=== PATIENT | female | born 1985 | race Caucasian/White ===

== ENCOUNTER 2020-03-13 08:10 | Outpatient (CLI) | payer BC ==
--- NOTE | 2020-03-13 08:29 | RAD ---
RADIOGRAPH CHEST 2 VIEWS: DATE: 03/13/2020 HISTORY: 34-year-old female with dyspnea on exertion FINDINGS: The lungs are clear. The cardiomediastinal silhouette and hilar shadows appear normal. There is no pl eural effusion or pneumothorax. IMPRESSION: Negative
== END 2020-03-13 08:11 | disposition home or self-care (01) ==
LOC: BICRAD 08:10
PROVIDERS: ATTEND Internal Medicine
DX: R06.00 Dyspnea, unspecified (principal)
CPT/HCPCS: 71046; 81001